=== PATIENT | male | born 1960 | race Caucasian/White ===

== ENCOUNTER 2017-04-16 03:27 | Emergency (ER) | payer MEDICARE, OTHER ==
[2017-04-16 03:50] VITALS: RESP 20; O2SAT 99
[2017-04-16] MEDS ORDERED: Polymyxin/Trimethoprim Ophth Soln OD STA (04:17)
--- NOTE | 2017-04-16 04:39 | C.PDOC ---
History Of Present Illness 56 year old patient presents to the ED complaining of yellow discharge from his eyes for the past 5 days. Patient only speaks by sign language, comb capper Chani Tijerina was used to obtain the history. Patient also complains of cough, watery eyes, and occasional sneezing. Patient notes he's never had seasonal allergies before and these symptoms are new to him. Patient denies fever or vomiting. Patient's also has similar symptoms who is at bedside. Time Seen by Provider: 04/16/17 03:51 Chief Complaint (Nursing): Cough, Cold, Congestion History Per: Patient, Senior Vice President And Chief Information Officer ([id number]) History/Exam Limitations: clinical condition Onset/Duration Of Symptoms: Days (5) Current Symptoms Are (Timing): Still Present Location Of Pain: Other Sick Contacts (Context): Family Member(s) () Associated Symptoms: Cough Ear Symptoms: Bilateral: None Severity: Mild Pain Scale Rating Of: 3 Recent travel outside of the [place]: No Past Medical History Reviewed: Historical Data, Nursing Documentation, Vital Signs Vital Signs: Last Vital Signs Temp 98.9 F 04/16/17 03:47 Pulse 64 04/16/17 03:47 Resp 20 04/16/17 03:47 BP 135/86 04/16/17 03:47 Pulse Ox 99 04/16/17 04:43 - Medical History PMH: Hyperlipidemia Family History: States: Unknown Family Hx - Social History Hx Tobacco Use: No Hx Alcohol Use: Yes Hx Substance Use: Yes (occasional marijuana) - Immunization History Hx Tetanus Toxoid Vaccination: No Hx Influenza Vaccination: No Hx Pneumococcal Vaccination: No Review Of Systems Constitutional: Negative for: Fever Eyes: Positive for: Other (discharge from eyes) Respiratory: Positive for: Cough, Other (occasional sneezing) Gastrointestinal: Negative for: Vomiting Physical Exam - Physical Exam Appears: Non-toxic, No Acute Distress Skin: Warm, Dry Head: Atraumatic, Normacephalic Eye(s): bilateral: Normal Inspection, PERRL, EOMI, Other (conjunctival injection bilaterally; drainage to right eye) Ear(s): Bilateral: Normal (hearing impaired) Nose: Normal Oral Mucosa: Moist Throat: Normal Neck: Normal ROM, Supple Chest: Symmetrical Cardiovascular: Rhythm Regular Respiratory: Normal Breath Sounds, No Rales, No Rhonchi, No Wheezing Back: Normal Inspection Extremity: Bilateral: Atraumatic, Normal ROM Neurological/Psych: Oriented x3 ED Course And Treatment O2 Sat by Pulse Oximetry: 99 (room air) Pulse Ox Interpretation: Normal Medical Decision Making Medical Decision Making: Impression: 56 y/o male with drainage from eyes Plan: * Claritin * Polytrim solution Disposition Counseled Patient/Family Regarding: Diagnosis, Need For Followup, Rx Given - Disposition Referrals: Faith Urrutia MD [Primary Care Provider] - Disposition: HOME/ ROUTINE Disposition Time: 04:50 Condition: STABLE Additional Instructions: take daily allergy medicine for symptoms apply 1 drop to eye 4 times per day Follow up with your primary medical doctor or clinic in 2-5 days for further evaluation. Prescriptions: Benzonatate [Tessalon Perles] 100 mg PO TID #30 sgl Loratadine [Claritin] 10 mg PO DAILY #30 tab Instructions: Allergic Rhinitis (ED) - POA Present On Arrival: None - Clinical Impression Clinical Impression: Allergic rhinitis - PA / TIPPLE ENGINEER / Resident Statement MD/DO has reviewed & agrees with the documentation as recorded. - Scribe Statement The provider has reviewed the documentation as recorded by the Scribe Shilpa Loera All medical record entries made by the Scribe were at my direction and personally dictated by me. I have reviewed the chart and agree that the record accurately reflects my personal performance of the history, physical exam, medical decision making, and the department course for this patient. I have also personally directed, reviewed, and agree with the discharge instructions and disposition.
[2017-04-16 05:13] VITALS: BP 133/70; PULSE 82; TEMP 98.2
== END 2017-04-16 05:13 | disposition home or self-care (01) ==
LOC: SUPCPDRO 03:27 → C.ER 03:27
DX: J30.9 Allergic rhinitis, unspecified (principal)

== ENCOUNTER 2018-05-26 22:42 | Emergency (ER) | payer MEDICARE, OTHER ==
[2018-05-26 23:17] VITALS: BP 130/82; PULSE 62; TEMP 98; O2SAT 98
[2018-05-27] MEDS ORDERED: Albuterol 0.083% Inhal Sol (2.5 mg/3 mL) UD ONE (00:26)
[2018-05-27] MEDS ORDERED: Albuterol 0.083% Inhal Sol (2.5 mg/3 mL) UD INH SCH (00:30)
--- NOTE | 2018-05-27 00:47 | C.PDOC ---
History Of Present Illness History is obtained by costume designer due to patient being deaf and mute. 57 year old male presents to the ED c/o nasal congestion, couhg, chest congestion. Patient also reports feeling back pain that occurs with coughing and deep expiration. Patient ahs taken OTC medications with no relief. Patient denies any fever, chills, SOB, recent travel, sick contacts. Time Seen by Provider: 05/26/18 23:28 Chief Complaint (Nursing): Cough, Cold, Congestion History Per: Patient, Mender [employer]s History/Exam Limitations: language barrier Onset/Duration Of Symptoms: Days Current Symptoms Are (Timing): Still Present Location Of Pain: Sinus/es Sick Contacts (Context): None Associated Symptoms: Cough, Nasal Congestion. denies: Fever Ear Symptoms: Bilateral: None Recent travel outside of the [place]: No Additional History Per: Patient Past Medical History Reviewed: Historical Data, Nursing Documentation, Vital Signs Vital Signs: Last Vital Signs Temp 98.0 F 05/26/18 23:14 Pulse 62 05/26/18 23:14 Resp 20 05/27/18 01:02 BP 130/82 05/26/18 23:14 Pulse Ox 98 05/27/18 02:59 - Medical History PMH: Hyperlipidemia Denies: Back Problems, Chronic Kidney Disease Surgical History: No Surg Hx Family History: States: Unknown Family Hx - Social History Hx Tobacco Use: No Hx Alcohol Use: No Hx Substance Use: Yes (occasional marijuana) - Immunization History Hx Tetanus Toxoid Vaccination: No Hx Influenza Vaccination: No Hx Pneumococcal Vaccination: No Review Of Systems Constitutional: Negative for: Fever, Chills ENT: Positive for: Nose Congestion. Negative for: Nose Discharge Cardiovascular: Negative for: Chest Pain, Palpitations Respiratory: Positive for: Cough. Negative for: Shortness of Breath Gastrointestinal: Negative for: Nausea, Vomiting Musculoskeletal: Positive for: Back Pain Skin: Negative for: Rash Neurological: Negative for: Weakness, Numbness Physical Exam - Physical Exam Appears: Non-toxic, No Acute Distress Skin: Normal Color, Warm, Dry Head: Atraumatic, Normacephalic Eye(s): bilateral: Normal Inspection Ear(s): Bilateral: Normal Oral Mucosa: Moist Throat: Normal, No Erythema, No Exudate Neck: Normal ROM, Supple Chest: Symmetrical Cardiovascular: Rhythm Regular Respiratory: Normal Breath Sounds, No Rales, No Rhonchi, No Wheezing, Other ( congested sounds. no retractions) Gastrointestinal/Abdominal: Soft, No Tenderness, No Guarding, No Rebound Extremity: Normal ROM, No Tenderness, No Swelling Neurological/Psych: Oriented x3, Other (deaf and mute) Gait: Steady ED Course And Treatment O2 Sat by Pulse Oximetry: 98 (ON RA) Pulse Ox Interpretation: Normal - Radiology CXR: Interpreted by Me, Viewed By Me CXR Interpretation: Yes: No Acute Disease, Other (unchanged from 2016). No: Infiltrates Progress Note: Plan: - CXR. - Albuterol nebulizer. - Prednisone 40 mg PO. - Motrin 600 mg PO. Patient's CXR is uncahged from 2016. Patient was stable in the ED remained in no respiratory distress. Patient was advised to follow up with PMD. Disposition Counseled Patient/Family Regarding: Diagnosis, Need For Followup, Rx Given - Disposition Referrals: [facility] [Outside] Disposition: HOME/ ROUTINE Disposition Time: 00:45 Condition: STABLE Additional Instructions: Please follow up with your doctor Take meds as directed Return to ER if worse Prescriptions: Benzonatate [Tessalon Perles] 100 mg PO TID #20 sgl Cetirizine HCl [Zyrtec] 10 mg PO DAILY #10 capsule Ibuprofen [Motrin] 600 mg PO Q6H #20 tab Instructions: Upper Respiratory Infection (ED) Forms: [facility] (Slovak) - Clinical Impression Clinical Impression: Upper respiratory infection - PA / INVENTORY CONTROL ANALYST / Resident Statement MD/DO has reviewed & agrees with the documentation as recorded. - Scribe Statement The provider has reviewed the documentation as recorded by the Scribe Deshawn Tatum All medical record entries made by the Scribe were at my direction and personally dictated by me. I have reviewed the chart and agree that the record accurately reflects my personal performance of the history, physical exam, medical decision making, and the department course for this patient. I have also personally directed, reviewed, and agree with the discharge instructions and disposition.
[2018-05-27 01:03] VITALS: RESP 20
--- NOTE | 2018-05-27 11:05 | RAD ---
Date of service: 05/27/2018 HISTORY: Chest congestion and cough 6 months duration. COMPARISON: 05/28/2016. TECHNIQUE: Chest PA and lateral FINDINGS: LUNGS: No active pulmonary disease. PLEURA: No significant pleural effusion identified. No pneumothorax apparent. CARDIOVASCULAR: No radiographic findings to suggest acute or significant cardiovascular disease. OSSEOUS STRUCTURES: No significant abnormalities. VISUALIZED UPPER ABDOMEN: Normal. OTHER FINDINGS: None. IMPRESSION: No active disease. No significant interval change compared to the prior examination(s).
== END 2018-05-27 01:02 | disposition home or self-care (01) ==
LOC: C.ER 22:42
DX: J06.9 Acute upper respiratory infection, unspecified (principal)

== ENCOUNTER 2018-07-21 21:19 | Emergency (ER) | payer MEDICARE, OTHER ==
[2018-07-21] MEDS ORDERED: Sodium Chloride 0.9% 1,000 ML IV ONE (22:40)
--- NOTE | 2018-07-21 22:40 | C.PDOC ---
History Of Present Illness 57 year old male presents to the ED c/o dysuria, increased urinary frequency that started a couple of days ago. Patient denies fever, chills, nausea, vomit, back pain. Patient is deaf mute. Time Seen by Provider: 07/21/18 22:39 Chief Complaint (Nursing): Male Genitourinary History Per: Patient, Cat Dog Or Other Pet Groomer History/Exam Limitations: physical impairment (deaf mute) Onset/Duration Of Symptoms: Days Current Symptoms Are (Timing): Still Present Severity: Moderate Quality Of Discomfort: "Pain" Associated Symptoms: denies: Nausea, Vomiting, Diarrhea Recent travel outside of the [place]: No Additional History Per: Patient Past Medical History Reviewed: Historical Data, Nursing Documentation, Vital Signs Vital Signs: Last Vital Signs Temp 98.3 F 07/22/18 00:40 Pulse 60 07/22/18 00:40 Resp 18 07/22/18 00:40 BP 128/63 07/22/18 00:40 Pulse Ox 99 07/22/18 00:40 - Medical History PMH: Hyperlipidemia Denies: Back Problems, Chronic Kidney Disease Surgical History: No Surg Hx Family History: States: Unknown Family Hx - Social History Hx Tobacco Use: No Hx Alcohol Use: Yes Hx Substance Use: Yes (occasional marijuana) - Immunization History Hx Tetanus Toxoid Vaccination: No Hx Influenza Vaccination: No Hx Pneumococcal Vaccination: No Review Of Systems Constitutional: Negative for: Fever, Chills Cardiovascular: Negative for: Chest Pain Respiratory: Negative for: Shortness of Breath Gastrointestinal: Positive for: Abdominal Pain. Negative for: Nausea, Vomiting Genitourinary: Positive for: Dysuria, Frequency Musculoskeletal: Negative for: Back Pain Neurological: Negative for: Weakness, Numbness Physical Exam - Physical Exam Appears: Non-toxic, No Acute Distress Skin: Warm, Dry Head: Normacephalic Eye(s): bilateral: Normal Inspection Neck: Supple Chest: Symmetrical Cardiovascular: Rhythm Regular Respiratory: No Rales, No Rhonchi, No Wheezing Gastrointestinal/Abdominal: Soft, Tenderness (moderate suprapubic), No Guarding , No Rebound Extremity: No Tenderness, No Swelling Neurological/Psych: Oriented x3, Normal Cognition, Other (deaf mute) Gait: Steady ED Course And Treatment - Laboratory Results Result Diagrams: 07/21/18 22:52 07/21/18 22:52 O2 Sat by Pulse Oximetry: 98 (ON RA) Pulse Ox Interpretation: Normal Progress Note: Plan: - Labs. - IV fluids. - Toradol 30 mg IVP. - Rocephin IVPB. - UA Reevaluation Time: 01:41 Reassessment Condition: Improved Medical Decision Making Medical Decision Making: Upon provider reevaluation patient is feeling better, is medically stable, and requires no further treatment in the ED at this time. Patient will be discharged home with Rx for cipro, miralax . Counseling was provided and all questions were answered regarding diagnosis and need for follow up with the referred clinic. There is agreement to discharge plan. Return if symptoms persist or worsen. Disposition Counseled Patient/Family Regarding: Studies Performed, Diagnosis, Need For Followup, Rx Given - Disposition Referrals: Faith Urrutia MD [Medical Doctor] - Disposition: HOME/ ROUTINE Disposition Time: 22:40 Condition: FAIR Additional Instructions: Please return if symptoms recur Prescriptions: Ciprofloxacin [Cipro] 1 tab PO BID #14 tab Ibuprofen [Motrin Tab] 800 mg PO TID PRN #15 tab PRN Reason: Pain, Moderate (4-7) Polyethylene Glycol 3350 [Miralax] 17 gm PO DAILY #270 ml Instructions: Urinary Tract Infection, Adult (DC), Constipation, Adult (DC) Forms: [employer] [facility] (Mongolian) - Clinical Impression Clinical Impression: UTI (urinary tract infection), Constipation - Scribe Statement The provider has reviewed the documentation as recorded by the Scribe Deshawn Tatum All medical record entries made by the Scribe were at my direction and personally dictated by me. I have reviewed the chart and agree that the record accurately reflects my personal performance of the history, physical exam, medical decision making, and the department course for this patient. I have also personally directed, reviewed, and agree with the discharge instructions and disposition.
[2018-07-21 22:59] LABS: BASO # 0.1 K/uL (0.0-0.2); BASO % 0.6 % (0.0-2.0); EOS # 0.1 K/uL (0.0-0.7); EOS % 1.1 % (0.0-4.0); HEMOGLOBIN 13.2 g/dL (12.0-18.0); LYMPH # 1.6 K/uL (1.0-4.3); LYMPH % 14.3 % (20.0-40.0); MEAN CELL VOLUME 84.7 fL (80.0-94.0); MEAN CORPUSCULAR HEMOGLOBIN 29.5 pg (27.0-31.0); MEAN CORPUSCULAR HGB CONC 34.8 g/dL (33.0-37.0); MEAN PLATELET VOLUME 7.6 fL (7.2-11.7); MONO % 9.3 % (0.0-10.0); NEUT # 8.4 K/uL (1.8-7.0); NEUT % 74.7 % (50.0-75.0); RBC 4.46 Mil/uL (4.40-5.90); RED CELL DISTRIBUTION WIDTH 13.1 % (11.5-14.5); WHITE BLOOD COUNT 11.3 K/uL (4.8-10.8)
[2018-07-21 23:03] LABS: URINE BACTERIA RARE (<OCC); URINE BILIRUBIN NEGATIVE (NEGATIVE); URINE BLOOD 3+ (NEGATIVE); URINE CLARITY Clear (Clear); URINE COLOR Yellow (YELLOW); URINE GLUCOSE (UA) NORMAL (Normal); URINE LEUKOCYTE ESTERASE 3+ Leu/uL (Negative); URINE PROTEIN NEGATIVE (NEGATIVE); URINE UROBILINOGEN NORMAL mg/dL (0.2-1.0)
[2018-07-21 23:04] LABS: INR 1.2; PROTHROMBIN TIME 13.3 SECONDS (9.7-12.2)
[2018-07-21] MEDS ORDERED: cefTRIAXone IV 1 gm in Dextros 50 ML IVPB ONE (23:05)
[2018-07-21 23:12] LABS: ALB/GLOB RATIO 1.3 (1.0-2.1); ALT/SGPT 46 U/L (21-72); AST/SGOT 39 U/L (17-59); BLOOD UREA NITROGEN 14 mg/dL (9-20); CALCIUM 9.1 mg/dl (8.6-10.4); GFR NON-AFRICAN AMERICAN > 60; LIPASE 86 U/L (23-300)
[2018-07-21] MEDS ORDERED: Sodium Chloride 0.9% 1,000 ML ONE (23:17)
[2018-07-21] MEDS ORDERED: cefTRIAXone 1 gm 1 GM/100 ML BAG IVPB ONE (23:17)
[2018-07-21] MEDS ORDERED: Iohexol 350mg/ml 100 ML ONE (23:30)
[2018-07-22 00:41] VITALS: RESP 18
[2018-07-22 02:06] VITALS: BP 112/66; PULSE 76; TEMP 98.4; O2SAT 99
--- NOTE | 2018-07-22 09:57 | CT ---
Date of service: 07/21/2018 PROCEDURE: CT Abdomen and Pelvis with intravenous contrast HISTORY: pyelonephritis COMPARISON: CT abdomen and pelvis dated 01/10/2016 TECHNIQUE: Multiple contiguous axial images were performed through the abdomen and pelvis with intravenous contrast. Subsequently, sagittal and coronal reformatted images were obtained. Radiation dose: Total exam DLP = 351 mGy-cm. This CT exam was performed using one or more of the following dose reduction techniques: Automated exposure control, adjustment of the mA and/or kV according to patient size, and/or use of iterative reconstruction technique. FINDINGS: LOWER THORAX: Unremarkable. LIVER: Unremarkable. No gross lesion or ductal dilatation. GALLBLADDER AND BILE DUCTS: Contracted gallbladder. PANCREAS: Unremarkable. No gross lesion or ductal dilatation. SPLEEN: Unremarkable. ADRENALS: Unremarkable. No mass. KIDNEYS AND URETERS: Unremarkable. No hydronephrosis. No solid mass. VASCULATURE: Atherosclerotic disease. BOWEL: Mild fecal retention in the colon consistent with constipation. APPENDIX: Unremarkable. Normal appendix. PERITONEUM: Unremarkable. No free fluid. No free air. LYMPH NODES: Unremarkable. No enlarged lymph nodes. BLADDER: Mild thickening of the urinary bladder wall which may represent a mild cystitis. Clinical correlation. REPRODUCTIVE: Unremarkable. BONES: No acute fracture. OTHER FINDINGS: None. IMPRESSION: Mild thickening of the urinary bladder wall which may represent a mild cystitis. Clinical correlation. Mild fecal retention in the colon consistent with constipation. These findings were preliminarily reported at 1:07 a.m. on 07/22/[address] Luis Unger from [facility].
== END 2018-07-22 02:16 | disposition home or self-care (01) ==
LOC: C.ER 21:19
DX: N39.0 Urinary tract infection, site not specified (principal); K59.00 Constipation, unspecified
CPT/HCPCS: 74177; 80053; 81001; 83690; 85025; 85610; 85730; 96361; 96374; 96375; 99285; J0696; J1885; J7030; Q9967